=== PATIENT | female | born 1995 | race Caucasian/White ===

== ENCOUNTER 2019-06-20 00:57 | Emergency (ER) | payer MEDICAID ==
[~2019-06-20] VITALS: Ht 165.1 cm; Wt 65.0 kg
[2019-06-20] MEDS ORDERED: IV NORMAL SALINE 1,000ML 1,000 ML IV SCH (01:58)
[2019-06-20] MEDS ORDERED: ONDANSETRON PF 4 MG/2 ML VIAL. IVP ONE (02:00)
[2019-06-20] MEDS: HYDROmorphone PF 1 MG/ML DISP.SYRIN IV/SQ PRN ×2 (02:14→02:57)
[2019-06-20 02:51] LABS: BASO % 0 % (0-3); EOS % 1 % (0-3); HEMATOCRIT 40.1 % (36.0-47.0); HEMOGLOBIN 13.4 g/dL (12.0-15.5); LYMPH # 1.5 x10^3/uL (1.0-4.8); LYMPH % 19 % (24-48); MEAN CORPUSCULAR HEMOGLOBIN 33 pg (25-35); MEAN CORPUSCULAR HGB CONC 34 g/dL (31-37); MEAN CORPUSCULAR VOLUME 98 fL (79-100); MONO # 0.4 x10^3/uL (0.0-1.1); MONO % 5 % (0-9); NEUT # 5.7 x10^3uL (1.8-7.7); NEUT % 75 % (31-73); PLATELET COUNT 185 x10^3/uL (140-400); RED BLOOD COUNT 4.11 x10^6/uL (3.50-5.40); RED CELL DISTRIBUTION WIDTH 12.9 % (11.5-14.5); WHITE BLOOD COUNT 7.7 x10^3/uL (4.0-11.0)
[2019-06-20 02:56] LABS: CALCIUM 8.7 mg/dL (8.5-10.1); CREATININE 0.7 mg/dL (0.6-1.0); GFR 101.1
[2019-06-20 02:56] LABS: U PREG PATIENT NEGATIVE (NEG)
[2019-06-20 02:57] LABS: BACTERIA,URINE 0 /HPF (0-FEW); BILIRUBIN,URINE NEG (NEG); CLARITY,URINE CLEAR; COLOR,URINE YELLOW; GLUCOSE,URINE NEG (NEG); NITRITE,URINE NEG (NEG); RBC,URINE OCC /HPF (0-2); SQUAMOUS EPITHELIAL CELL,UR FEW /LPF; UROBILINOGEN,URINE 0.2 mg/dL (0.2 mg/dL)
[2019-06-20 03:04] LABS: ALBUMIN/GLOBULIN RATIO 1.4 (1.0-1.7); TOTAL BILIRUBIN 0.4 mg/dL (0.2-1.0); TOTAL PROTEIN 6.9 g/dL (6.4-8.2)
[2019-06-20] MEDS ORDERED: IOHEXOL 300 MG/ML 75 ML VIAL. IV ONE (03:30)
[2019-06-20] MEDS ORDERED: CONTRAST GIVEN MC PRN (03:30)
--- NOTE | 2019-06-20 03:59 | RAD ---
EXAM: CT Abdomen and Pelvis with IV contrast CLINICAL HISTORY: Abdominal pain. COMPARISON: none TECHNIQUE: Helical CT of the abdomen and pelvis was performed following the administration of intravenous contrast. Axial, coronal and sagittal reformatted images were generated. PQRS compliance statement - One or more of the following individualized dose reduction techniques were utilized for this study: 1. Automated exposure control 2. Adjustment of the mA and/or kV according to patient size 3. Use of iterative reconstruction technique FINDINGS: Lower chest: Lung bases are clear Abdomen and Pelvis: No focal liver lesion. Mild periportal edema is seen, larger clinical significance. Gallbladder is normal. No biliary duct dilatation. Pancreas is unremarkable. Heterogeneous enhancement of this fluid likely physiologic. Adrenal glands are normal. Mildly delayed left nephrogram. Mild left hydronephrosis and hydroureter. Suspect a 4 mm calculus within the distal left ureter. Of note, the ureter in the pelvis is not well delineated. Mild left perinephric infiltration. Moderate colonic stool content is seen. No bowel obstruction. No abdominal or pelvic lymphadenopathy. No abdominal or pelvic ascites. Appendix is not convincingly seen. No significant right lower quadrant inflammatory changes are seen. Small bowel feces sign terminal ileum. Bilateral coxa valga. No aggressive osseous lesion. IMPRESSION: 1. There is a delayed left nephrogram with left hydronephrosis and hydroureter, likely due to a 4 mm calculus within the distal left ureter. Of note, the ureter in the pelvis is not well delineated and these findings may be also related to left-sided pyelonephritis. 2. Moderate colonic stool content is seen. No definite bowel obstruction. 3. Mild periportal edema is nonspecific. This can be correlated with LFTs. Electronically signed by: Henrique Philippe MD (06/20/2019 3:56 AM) [facility]
[2019-06-20] MEDS ORDERED: KETOROLAC 30 MG/ML VIAL. IVP ONE (04:00)
[2019-06-20] MEDS ORDERED: KETOROLAC 30 MG/ML VIAL. ONE (04:09)
[2019-06-20] MEDS ORDERED: MORPHINE SULFATE 4 MG/ML DISP.SYRIN. IV ONE (04:15)
[2019-06-20] MEDS ORDERED: MORPHINE SULFATE 4 MG/ML DISP.SYRIN. ONE (04:17)
--- NOTE | 2019-06-20 04:27 | PHYS DOC ---
Past History Past Medical History: High Cholesterol Past Surgical History: No Surgical History Alcohol Use: None Adult General Chief Complaint Chief Complaint: ABDOMINAL PAIN HPI HPI Patient is a 24-year-old female who presents with complaint of left-sided flank/abdominal pain that woke her up at about 11:30 PM. Patient states that she has had nausea and vomiting since onset of the pain. She rates pain at a 10 out of 10. She denies any fever. Patient states that nothing improves the pain and she is not really aware of anything specific that worsens the pain. She states that it just hurts no matter what.[] Review of Systems Review of Systems Constitutional: Denies fever or chills [] Respiratory: Denies cough or shortness of breath [] Cardiovascular: No additional information not addressed in HPI [] GI: Complains of left flank/lower abdominal pain with nausea and vomiting. Denies diarrhea [] Integument: Denies rash or skin lesions [] Neurologic: Denies headache, focal weakness or sensory changes [] All other systems were reviewed and found to be within normal limits, except as documented in this note. Current Medications Current Medications Current Medications Medications (Trade) Dose Ordered Sig/Arsalan Start Time Stop Time Status Last Admin Dose Admin Hydromorphone HCl (Dilaudid) 0.5 mg PRN Q15MIN PRN 06/20/19 02:00 06/21/19 01:59 06/20/19 02:57 0.5 MG Info (Do NOT chart on this entry -- for MONITORING) 1 each PRN DAILY PRN 06/20/19 03:30 06/22/19 03:29 Iohexol (Omnipaque 300 Mg/ml) 75 ml 1X ONCE 06/20/19 03:30 06/20/19 03:31 DC 06/20/19 03:29 75 ML Ketorolac Tromethamine (Toradol 30mg Vial) 30 mg 1X ONCE 06/20/19 04:00 06/20/19 04:01 UNV Ondansetron HCl (Zofran) 4 mg 1X ONCE 06/20/19 02:00 06/20/19 02:17 DC 06/20/19 02:15 4 MG Sodium Chloride 1,000 ml @ 1,000 mls/hr Q1H 06/20/19 01:58 06/20/19 02:58 DC 06/20/19 02:14 1,000 MLS/HR Allergies Allergies Allergies Coded Allergies Type Severity Reaction Last Updated Verified Sulfa (Sulfonamide Antibiotics) Allergy Severe 06/20/19 Yes Physical Exam Physical Exam Constitutional: Well developed, well nourished, no acute distress, non-toxic appearance. [] HENT: Normocephalic, atraumatic, bilateral external ears normal, oropharynx moist, no oral exudates, nose normal. [] Eyes: PERRLA, EOMI, conjunctiva normal, no discharge. [] Neck: Normal range of motion, no tenderness, supple, no stridor. [] Cardiovascular:Heart rate regular rhythm, no murmur [] Lungs & Thorax: Bilateral breath sounds clear to auscultation [] Abdomen: Bowel sounds normal, soft, no tenderness, no masses, no pulsatile masses. [] Skin: Warm, dry, no erythema, no rash. [] Back: No tenderness, no CVA tenderness. [] Extremities: No tenderness, no cyanosis, no clubbing, ROM intact, no edema. [] Neurologic: Alert and oriented X 3, normal motor function, normal sensory function, no focal deficits noted. [] Psychologic: Affect normal, judgement normal, mood normal. [] Current Patient Data Vital Signs Vital Signs Date Time Temp Pulse Resp B/P (MAP) Pulse Ox O2 Delivery O2 Flow Rate FiO2 06/20/19 02:57 18 99 Room Air 06/20/19 01:42 98.0 70 147/86 (106) Lab Results Laboratory Tests Test 06/20/19 01:28 06/20/19 01:38 Urine Collection Type Unknown Urine Color Yellow Urine Clarity Clear Urine pH 5.5 Urine Specific [place] >=1.030 Urine Protein Neg (NEG-TRACE) Urine Glucose (UA) Neg mg/dL (NEG) Urine Ketones (Stick) Neg mg/dL (NEG) Urine Blood Small (NEG) Urine Nitrite Neg (NEG) Urine Bilirubin Neg (NEG) Urine Urobilinogen Dipstick 0.2 mg/dL (0.2 mg/dL) Urine Leukocyte Esterase Neg (NEG) Urine RBC Occ /HPF (0-2) Urine WBC 1-4 /HPF (0-4) Urine Squamous Epithelial Cells Few /LPF Urine Bacteria 0 /HPF (0-FEW) Urine Test Negative (NEG) White Blood Count 7.7 x10^3/uL (4.0-11.0) Red Blood Count 4.11 x10^6/uL (3.50-5.40) Hemoglobin 13.4 g/dL (12.0-15.5) Hematocrit 40.1 % (36.0-47.0) Mean Corpuscular Volume 98 fL (79-100) Mean Corpuscular Hemoglobin 33 pg (25-35) Mean Corpuscular Hemoglobin Concent 34 g/dL (31-37) Red Cell Distribution Width 12.9 % (11.5-14.5) Platelet Count 185 x10^3/uL (140-400) Neutrophils (%) (Auto) 75 % (31-73) H Lymphocytes (%) (Auto) 19 % (24-48) L Monocytes (%) (Auto) 5 % (0-9) Eosinophils (%) (Auto) 1 % (0-3) Basophils (%) (Auto) 0 % (0-3) Neutrophils # (Auto) 5.7 x10^3uL (1.8-7.7) Lymphocytes # (Auto) 1.5 x10^3/uL (1.0-4.8) Monocytes # (Auto) 0.4 x10^3/uL (0.0-1.1) Eosinophils # (Auto) 0.0 x10^3/uL (0.0-0.7) Basophils # (Auto) 0.0 x10^3/uL (0.0-0.2) Sodium Level 143 mmol/L (136-145) Potassium Level 4.0 mmol/L (3.5-5.1) Chloride Level 104 mmol/L (98-107) Carbon Dioxide Level 29 mmol/L (21-32) Anion Gap 10 (6-14) Blood Urea Nitrogen 12 mg/dL (7-20) Creatinine 0.7 mg/dL (0.6-1.0) Estimated GFR (Cockcroft-Gault) 101.1 BUN/Creatinine Ratio 17 (6-20) Glucose Level 112 mg/dL (70-99) H Calcium Level 8.7 mg/dL (8.5-10.1) Total Bilirubin 0.4 mg/dL (0.2-1.0) Aspartate Amino Transferase (AST) 14 U/L (15-37) L Alanine Aminotransferase (ALT) 19 U/L (14-59) Alkaline Phosphatase 39 U/L (46-116) L Total Protein 6.9 g/dL (6.4-8.2) Albumin 4.0 g/dL (3.4-5.0) Albumin/Globulin Ratio 1.4 (1.0-1.7) Lipase 103 U/L (73-393) EKG EKG [] Radiology/Procedures Radiology/Procedures [] Impressions: PROCEDURE: CT ABD PELV W/ IV CONTRST ONLY EXAM: CT Abdomen and Pelvis with IV contrast CLINICAL HISTORY: Abdominal pain. COMPARISON: none TECHNIQUE: Helical CT of the abdomen and pelvis was performed following the administration of intravenous contrast. Axial, coronal and sagittal reformatted images were generated. PQRS compliance statement - One or more of the following individualized dose reduction techniques were utilized for this study: 1. Automated exposure control 2. Adjustment of the mA and/or kV according to patient size 3. Use of iterative reconstruction technique FINDINGS: Lower chest: Lung bases are clear Abdomen and Pelvis: No focal liver lesion. Mild periportal edema is seen, larger clinical significance. Gallbladder is normal. No biliary duct dilatation. Pancreas is unremarkable. Heterogeneous enhancement of this fluid likely physiologic. Adrenal glands are normal. Mildly delayed left nephrogram. Mild left hydronephrosis and hydroureter. Suspect a 4 mm calculus within the distal left ureter. Of note, the ureter in the pelvis is not well delineated. Mild left perinephric infiltration. Moderate colonic stool content is seen. No bowel obstruction. No abdominal or pelvic lymphadenopathy. No abdominal or pelvic ascites. Appendix is not convincingly seen. No significant right lower quadrant inflammatory changes are seen. Small bowel feces sign terminal ileum. Bilateral coxa valga. No aggressive osseous lesion. IMPRESSION: 1. There is a delayed left nephrogram with left hydronephrosis and hydroureter, likely due to a 4 mm calculus within the distal left ureter. Of note, the ureter in the pelvis is not well delineated and these findings may be also related to left-sided pyelonephritis. 2. Moderate colonic stool content is seen. No definite bowel obstruction. 3. Mild periportal edema is nonspecific. This can be correlated with LFTs. Electronically signed by: Henrique Philippe MD (06/20/2019 3:56 AM) [id number] DICTATED AND SIGNED BY: HENRIQUE PHILIPPE MD DATE: 06/20/19 0356 CC: MARTIN HERNANDEZ Jr. DO; TAY RAMIREZ ~ Course & Med Decision Making Course & Med Decision Making Pertinent Labs and Imaging studies reviewed. (See chart for details) [] Dragon Disclaimer Dragon Disclaimer This electronic medical record was generated, in whole or in part, using a voice recognition dictation system. Departure Departure: Impression: Primary Impression: Ureterolithiasis Disposition: HOME, SELF-CARE Condition: STABLE Referrals: TAY RAMIREZ (PCP) Patient Instructions: Diet for Kidney Stones, Kidney Stones Scripts Ketorolac Tromethamine (KETOROLAC TROMETHAMINE) 10 Mg Tablet 1 TAB PO PRN Q6HRS for pain, #20 TAB Prov: MARTIN HERNANDEZ Jr. DO 06/20/19 Ondansetron (ONDANSETRON ODT) 4 Mg Tab.rapdis 1 TAB PO PRN Q6-8HRS PRN for NAUSEA, #12 TAB Prov: MARTIN HERNANDEZ Jr. DO 06/20/19 Oxycodone Hcl/Acetaminophen (PERCOCET 10-325 MG TABLET ) 1 Each Tablet 1 TAB PO PRN QID PRN for PAIN MDD 4 Tablet(s), #15 TAB 0 Refills Prov: MARTIN HERNANDZE Jr. DO 06/20/19 MARTIN HERNANDEZ Jr. DO Jun 20, 2019 04:26
[2019-06-20 04:42] VITALS: BP 116/73
[2019-06-20] MEDS ORDERED: ONDA4TAB12 PO (05:21)
[2019-06-20] MEDS ORDERED: KETO10TA PO (05:21)
[2019-06-20] MEDS ORDERED: OXYC1TAB22 PO (05:21)
== END 2019-06-20 05:32 | disposition home or self-care (01) ==
LOC: ER 00:57
DX: N13.2 Hydronephrosis with renal and ureteral calculous obstruction (principal); R10.32 Left lower quadrant pain; R11.2 Nausea with vomiting, unspecified; E78.00 Pure hypercholesterolemia, unspecified; Z88.2 Allergy status to sulfonamides
CPT/HCPCS: 36415; 74177; 80053; 81001; 81025; 83690; 85025; 96361; 96374; 96375; 99285; J1170; J1885; J2270; J2405; Q9967; J7030

== ENCOUNTER 2020-02-17 12:31 | Emergency (ER) | payer MEDICAID, OTHER ==
[~2020-02-17] VITALS: Ht 165.1 cm; Wt 65.0 kg
[~2020-02-17 12:31] MED LIST: KETO10TA PO; ONDA4TAB12 PO; OXYC1TAB22 PO
--- NOTE | 2020-02-17 12:41 | PHYS DOC ---
Past History Past Medical History: High Cholesterol Past Surgical History: No Surgical History Alcohol Use: None General Adult EDM: Chief Complaint: VOMITING IN HPI: HPI: Patient is a G1, P0 female whose last menstrual period was 7 weeks ago presents with a chief complaint of nausea and vomiting for last 2 weeks. Patient states that is gotten worse over last 2 days and is worse with eating. Patient denies any abdominal pain or vaginal bleeding. Patient says she had a temperature of 995 today but is gone this morning. Patient states she has had some constipation as well. Review of Systems: Review of Systems: Constitutional: Patient had temp of 995 yesterday Eyes: Denies change in visual acuity HENT: Denies nasal congestion or sore throat Respiratory: Denies cough or shortness of breath Cardiovascular: Denies chest pain or edema GI: Complains of nausea and vomiting and constipation but no abdominal pain : Denies dysuria denies vaginal bleeding Musculoskeletal: Denies back pain or joint pain Integument: Denies rash Neurologic: Denies headache, focal weakness or sensory changes Endocrine: Denies polyuria or polydipsia Lymphatic: Denies swollen glands Psychiatric: Denies depression or anxiety Heart Score: Risk Factors: Risk Factors: DM, Current or recent (<one month) smoker, HTN, HLP, family history of CAD, obesity. Risk Scores: Score 0 - 3: 2.5% MACE over next 6 weeks - Discharge Home Score 4 - 6: 20.3% MACE over next 6 weeks - Admit for Clinical Observation Score 7 - 10: 72.7% MACE over next 6 weeks - Early Invasive Strategies Current Medications: Current Meds: Current Medications Medications (Trade) Dose Ordered Sig/Arsalan Start Time Stop Time Status Last Admin Dose Admin Dextrose/Lactated Ringer's 1,000 ml @ 1,000 mls/hr 1X ONCE 02/17/20 12:45 02/17/20 13:44 Ondansetron HCl (Zofran) 4 mg 1X ONCE 02/17/20 12:45 02/17/20 12:46 Allergies: Allergies: Allergies Coded Allergies Type Severity Reaction Last Updated Verified Sulfa (Sulfonamide Antibiotics) Allergy Severe 06/20/19 Yes Physical Exam: PE: Constitutional: Well developed, well nourished, no acute distress, non-toxic appearance. [] HENT: Normocephalic, atraumatic, bilateral external ears normal, no trismus nose normal. [] Eyes: PERRLA, EOMI, conjunctiva normal, no discharge. [] Neck: Normal range of motion, no tenderness, supple, no stridor. [] Cardiovascular:Heart rate regular rhythm, peripheral pulses intact, cap refill is brisk Lungs & Thorax: Bilateral breath sounds clear, no respiratory distress Abdomen:, soft, no tenderness, no masses, no pulsatile masses. [] Skin: Warm, dry, no erythema, no rash. [] Back: No tenderness, no CVA tenderness. [] Extremities: No tenderness, no cyanosis, no clubbing, ROM intact, no edema. [] Neurologic: Alert and oriented X 3, normal motor function, normal sensory function, no focal deficits noted. [] Psychologic: Affect normal, judgement normal, mood normal. [] Current Patient Data: Labs: Laboratory Tests Test 02/17/20 12:50 White Blood Count 8.0 x10^3/uL Red Blood Count 4.45 x10^6/uL Hemoglobin 14.3 g/dL Hematocrit 42.5 % Mean Corpuscular Volume 96 fL Mean Corpuscular Hemoglobin 32 pg Mean Corpuscular Hemoglobin Concent 34 g/dL Red Cell Distribution Width 11.8 % Platelet Count 246 x10^3/uL Neutrophils (%) (Auto) 78 % Lymphocytes (%) (Auto) 15 % Monocytes (%) (Auto) 7 % Eosinophils (%) (Auto) 0 % Basophils (%) (Auto) 0 % Neutrophils # (Auto) 6.2 x10^3uL Lymphocytes # (Auto) 1.2 x10^3/uL Monocytes # (Auto) 0.6 x10^3/uL Eosinophils # (Auto) 0.0 x10^3/uL Basophils # (Auto) 0.0 x10^3/uL Urine Collection Type Unknown Urine Color Yellow Urine Clarity Hazy Urine pH 7.0 Urine Specific [place] 1.020 Urine Protein Neg Urine Glucose (UA) Neg mg/dL Urine Ketones (Stick) 40 mg/dL Urine Blood Neg Urine Nitrite Neg Urine Bilirubin Neg Urine Urobilinogen Dipstick 0.2 mg/dL Urine Leukocyte Esterase Neg Urine RBC 1-2 /HPF Urine WBC 1-4 /HPF Urine Squamous Epithelial Cells Few /LPF Urine Amorphous Sediment Present /HPF Urine Bacteria Few /HPF Urine Mucus Slight /LPF Maternal Serum HCG Beta Subunit 780960 mIU/mL Sodium Level 139 mmol/L Potassium Level 4.0 mmol/L Chloride Level 101 mmol/L Carbon Dioxide Level 26 mmol/L Anion Gap 12 Blood Urea Nitrogen 9 mg/dL Creatinine 0.7 mg/dL Estimated GFR (Cockcroft-Gault) 101.1 BUN/Creatinine Ratio 13 Glucose Level 91 mg/dL Calcium Level 9.7 mg/dL Total Bilirubin 0.6 mg/dL Aspartate Amino Transf (AST/SGOT) 13 U/L Alanine Aminotransferase (ALT/SGPT) 18 U/L Alkaline Phosphatase 46 U/L Total Protein 8.0 g/dL Albumin 4.4 g/dL Albumin/Globulin Ratio 1.2 Lipase 78 U/L Current Medications Medications (Trade) Dose Ordered Sig/Arsalan Route PRN Reason Start Time Stop Time Status Last Admin Dose Admin Dextrose/Lactated Ringer's 1,000 ml @ 1,000 mls/hr 1X ONCE IV 02/17/20 12:45 02/17/20 13:44 DC 02/17/20 12:47 Ondansetron HCl (Zofran) 4 mg 1X ONCE IVP 02/17/20 12:45 02/17/20 12:46 DC 02/17/20 12:47 Vital Signs: Vital Signs Date Time Temp Pulse Resp B/P (MAP) Pulse Ox O2 Delivery O2 Flow Rate FiO2 02/17/20 12:52 98.9 77 18 128/53 (78) 100 EKG: EKG: [] Radiology/Procedures: Radiology/Procedures: [][address] [address] IMAGING REPORT Signed PATIENT: GRISELDA CHAU SACCOUNT: [id number] : 1995 LOCATION: ER AGE: 24 SEX: F EXAM STATUS: REG ER ORD. PHYSICIAN: MARTIN CORDOVA MD REASON: 7 weeks preg. pain PROCEDURE: OB <14 WKS EXAMINATION: OB <14 WKS, 02/17/2020 12:34 PM CLINICAL INDICATION: 7 weeks , pain TECHNIQUE: Pelvic ultrasound per OB less than 14 weeks protocol via transvaginal approach. COMPARISON: None FINDINGS: The uterus measures 8 x 6 x 6 cm. There is a single living intrauterine gestation. heart rate is 152 bpm. [place]-rump length is 1.8 cm, consistent with gestational age by ultrasound of 8 weeks 2 days. A gestational sac is normal in appearance. Possible yolk sac visualized. No evidence of subchorionic hemorrhage. The right ovary measures 3.5 x 1.6 x 1.3 cm. The left ovary measures 2.8 x 1.7 x 2.0 cm. Normal ovarian flow bilaterally. No adnexal mass or free fluid. IMPRESSION: Single living intrauterine with gestational age by ultrasound 8 weeks 2 days. Electronically signed by: Janelle Olguin MD (02/17/2020 1:55 PM) [id number] DICTATED AND SIGNED BY: JANELLE OLGUIN MD DATE: 02/17/20 [id number] CC: MARTIN CORDOVA MD; TAY RAMIREZ ~ Course & Med Decision Making: Course & Med Decision Making Pertinent Labs and Imaging studies reviewed. (See chart for details) [] 24-year-old female who is 8 weeks presents with nausea vomiting. Ultrasound is reassuring. Patient feels much better after fluids and Zofran. Patient does have a mild UTI which will be treated. Abdominal exam is benign. Dragon Disclaimer: Dragon Disclaimer: This electronic medical record was generated, in whole or in part, using a voice recognition dictation system. Departure Departure: Impression: Primary Impression: Vomiting Additional Impression: UTI (urinary tract infection) Disposition: 01 HOME/RESIDENCE PRIOR TO ADM Condition: STABLE Referrals: TAY RAMIREZ (PCP) 2-3 days Patient Instructions: Hyperemesis Gravidarum, Nausea and Vomiting Additional Instructions: EMERGENCY DEPARTMENT GENERAL DISCHARGE INSTRUCTIONS THANK YOU for coming to [facility] Emergency Department (ED) today and trusting us with your care. We trust that you had a positive experience in our Emergency Department. If you wish to speak to the department Management you can contact the emergency department at YOUR FOLLOW UP INSTRUCTIONS ARE FOLLOWS: Do you have a private doctor? If you do not have a private doctor, please ask for a resource list of physicians or clinics that may be able to assist you with follow up care. The Emergency Physician has interpreted your x-rays. The X-ray specialist will also review them. If there is a change in the findings you will be notified in 48 hours when at all possible. A lab test or lab culture may have been done, your results will be reviewed and you will be notified if you need a change in treatment. ADDITIONAL INSTRUCTIONS AND INFORMATION Your care today has been supervised by a physician who is specially trained in emergency care. Many problems require more than one evaluation for a complete diagnosis and treatment. We recommend that you schedule your follow up appointment as recommended to ensure complete treatment of your illness or injury. If you are unable to obtain follow up care and continue to have a problem, or if your condition worsens we recommend that you return to the ED. We are not able to safely determine your condition over the phone nor are we able to give sound medical advice over the phone. For these safety reasons, if you call for medical advice we will ask you to come to the ED for further evaluation If you have any questions regarding these discharge instructions please call the ED at . SAFETY INFORMATION In the interest of safety, wellness, and injury prevention; we encourage you to wear your seatbelt, if you smoke; quit smoking, and we encourage your family to use protective helmet for bicycling and other sporting events that present an increased risk for head injury. IF YOUR SYMPTOMS WORSEN OR NEW SYMPTOMS DEVELOP, OR YOU HAVE CONCERNS ABOUT YOUR CONDITION; OR IF YOUR CONDITION WORSENS WHILE YOU ARE WAITING FOR YOUR FOLLOW UP APPOINTMENT; EITHER CONTACT YOUR PRIMARY CARE DOCTOR, THE PHYSICIAN WHOSE NAME AND NUMBER YOU WERE GIVEN, OR RETURN TO THE ED IMMEDIATELY. Scripts Nitrofurantoin Monohyd/M-Cryst (MACROBID 100 MG CAPSULE) 100 Mg Capsule 1 CAP PO BID for uti for 5 Days, #10 CAP 0 Refills Prov: MARTIN CORDOVA MD 02/17/20 Ondansetron Hcl (ZOFRAN) 4 Mg Tablet 1 TAB PO Q6HRS for nausea, #15 TAB Prov: MARTIN CORDOVA MD 02/17/20 Justification of Admission: Justification of Admission: Justification of Admission Dx: N/A MARTIN CORDOVA MD Feb 17, 2020 12:41
[2020-02-17] MEDS ORDERED: IV DEXTROSE 5%-LACT RINGERS 1,000 ML IV ONE (12:45)
[2020-02-17] MEDS ORDERED: ONDANSETRON PF 4 MG/2 ML VIAL. IVP ONE (12:45)
[2020-02-17 12:52] VITALS: BP 128/53
[2020-02-17 13:12] LABS: BASO % 0 % (0-3); EOS % 0 % (0-3); HEMATOCRIT 42.5 % (36.0-47.0); HEMOGLOBIN 14.3 g/dL (12.0-15.5); LYMPH # 1.2 x10^3/uL (1.0-4.8); LYMPH % 15 % (24-48); MEAN CORPUSCULAR HEMOGLOBIN 32 pg (25-35); MEAN CORPUSCULAR HGB CONC 34 g/dL (31-37); MEAN CORPUSCULAR VOLUME 96 fL (79-100); MONO # 0.6 x10^3/uL (0.0-1.1); MONO % 7 % (0-9); NEUT # 6.2 x10^3uL (1.8-7.7); NEUT % 78 % (31-73); PLATELET COUNT 246 x10^3/uL (140-400); RED BLOOD COUNT 4.45 x10^6/uL (3.50-5.40); RED CELL DISTRIBUTION WIDTH 11.8 % (11.5-14.5)
[2020-02-17 13:16] LABS: CALCIUM 9.7 mg/dL (8.5-10.1); CREATININE 0.7 mg/dL (0.6-1.0); GFR 101.1
[2020-02-17 13:21] LABS: ALBUMIN 4.4 g/dL (3.4-5.0); ALBUMIN/GLOBULIN RATIO 1.2 (1.0-1.7); TOTAL BILIRUBIN 0.6 mg/dL (0.2-1.0)
[2020-02-17 13:37] LABS: BILIRUBIN,URINE NEG (NEG); CLARITY,URINE HAZY; COLOR,URINE YELLOW; GLUCOSE,URINE NEG (NEG); NITRITE,URINE NEG (NEG); UROBILINOGEN,URINE 0.2 mg/dL (0.2 mg/dL)
[2020-02-17 13:38] LABS: AMORPHOUS SEDIMENT,UR PRESENT /HPF; BACTERIA,URINE FEW /HPF (0-FEW); SQUAMOUS EPITHELIAL CELL,UR FEW /LPF
--- NOTE | 2020-02-17 13:58 | RAD ---
EXAMINATION: OB <14 WKS, 02/17/2020 12:34 PM CLINICAL INDICATION: 7 weeks , pain TECHNIQUE: Pelvic ultrasound per OB less than 14 weeks protocol via transvaginal approach. COMPARISON: None FINDINGS: The uterus measures 8 x 6 x 6 cm. There is a single living intrauterine gestation. heart rate is 152 bpm. [place]-rump length is 1.8 cm, consistent with gestational age by ultrasound of 8 weeks 2 days. A gestational sac is normal in appearance. Possible yolk sac visualized. No evidence of subchorionic hemorrhage. The right ovary measures 3.5 x 1.6 x 1.3 cm. The left ovary measures 2.8 x 1.7 x 2.0 cm. Normal ovarian flow bilaterally. No adnexal mass or free fluid. IMPRESSION: Single living intrauterine with gestational age by ultrasound 8 weeks 2 days. Electronically signed by: Janelle Olguin MD (02/17/2020 1:55 PM) [id number]
[2020-02-17] MEDS ORDERED: ONDA4TAB7 PO (15:35)
[2020-02-17] MEDS ORDERED: NITR100C62 PO (15:35)
== END 2020-02-17 15:55 | disposition home or self-care (01) ==
LOC: ER 12:31
DX: O23.41 Unspecified infection of urinary tract in pregnancy, first trimester (principal); O21.9 Vomiting of pregnancy, unspecified; K59.00 Constipation, unspecified; E78.00 Pure hypercholesterolemia, unspecified; Z3A.08 8 weeks gestation of pregnancy; Z88.2 Allergy status to sulfonamides
CPT/HCPCS: 36415; 76801; 80053; 81001; 83690; 84702; 85025; 96361; 96374; 99284; J2405

== ENCOUNTER 2020-02-20 17:46 | Emergency (ER) | payer OTHER ==
[~2020-02-20] VITALS: Ht 165.1 cm; Wt 55.0 kg
[~2020-02-20 17:46] MED LIST changes: +NITR100C62 PO; +ONDA4TAB7 PO
[2020-02-20] MEDS ORDERED: ONDANSETRON PF 4 MG/2 ML VIAL. IVP ONE (18:30)
[2020-02-20] MEDS ORDERED: IV NORMAL SALINE 1,000ML 1,000 ML IV ONE (18:30)
[2020-02-20] MEDS ORDERED: diphenhydrAMINE 50 MG/ML VIAL IVP ONE (18:45)
[2020-02-20] MEDS ORDERED: METOCLOPRAMIDE HCL 10 MG/2 ML VIAL. IVP ONE (18:45)
--- NOTE | 2020-02-20 18:52 | PHYS DOC ---
Past History Past Medical History: No Pertinent History, High Cholesterol Past Surgical History: No Surgical History Alcohol Use: None General Adult EDM: Chief Complaint: VOMITING IN HPI: HPI: 24-year-old G1, P0 female that is 9 weeks presents with vomiting. The patient was seen in this emergency room a few days ago with vomiting. She was able to eat the day that she left, but has been unable to keep down liquids or solids with any consistency since that time. She has been taking both tablets Zofran as well as ODT Zofran without control of her vomiting. She has also tried Bonjesta. She was diagnosed with a UTI and placed on an antibiotic but she is not sure that she is getting much of the antibiotics since she throws up. She just wants to control her vomiting. She has no other complaints at this time. She denies fever or chills. Review of Systems: Review of Systems: Constitutional: Denies fever or chills Eyes: Denies change in visual acuity HENT: Denies nasal congestion or sore throat Respiratory: Denies cough or shortness of breath Cardiovascular: Denies chest pain or edema GI: nausea, vomiting. : Denies dysuria Musculoskeletal: Denies back pain or joint pain Integument: Denies rash Neurologic: Denies headache, focal weakness or sensory changes Endocrine: Denies polyuria or polydipsia Lymphatic: Denies swollen glands Psychiatric: Denies depression or anxiety Heart Score: Risk Factors: Risk Factors: DM, Current or recent (<one month) smoker, HTN, HLP, family history of CAD, obesity. Risk Scores: Score 0 - 3: 2.5% MACE over next 6 weeks - Discharge Home Score 4 - 6: 20.3% MACE over next 6 weeks - Admit for Clinical Observation Score 7 - 10: 72.7% MACE over next 6 weeks - Early Invasive Strategies Current Medications: Current Meds: Current Medications Medications (Trade) Dose Ordered Sig/Arsalan Start Time Stop Time Status Last Admin Dose Admin Diphenhydramine HCl (Benadryl) 25 mg 1X ONCE 02/20/20 18:45 02/20/20 18:47 DC Metoclopramide HCl (Reglan Vial) 10 mg 1X ONCE 02/20/20 18:45 02/20/20 18:47 DC Ondansetron HCl (Zofran) 4 mg 1X ONCE 02/20/20 18:30 02/20/20 18:34 DC Sodium Chloride 1,000 ml @ 1,000 mls/hr 1X ONCE 02/20/20 18:30 02/20/20 19:29 Allergies: Allergies: Allergies Coded Allergies Type Severity Reaction Last Updated Verified Sulfa (Sulfonamide Antibiotics) Allergy Severe 06/20/19 Yes Physical Exam: PE: Constitutional: Well developed, well nourished, no acute distress, non-toxic appearance. [] HENT: Normocephalic, atraumatic, bilateral external ears normal, oropharynx moist, no oral exudates, nose normal. [] Eyes: PERRLA, EOMI, conjunctiva normal, no discharge. [] Neck: Normal range of motion, no tenderness, supple, no stridor. [] Cardiovascular:Heart rate regular rhythm, no murmur [] Lungs & Thorax: Bilateral breath sounds clear to auscultation [] Abdomen: Bowel sounds normal, soft, no tenderness, no masses, no pulsatile masses. [] Skin: Warm, dry, no erythema, no rash. [] Back: No tenderness, no CVA tenderness. [] Extremities: No tenderness, no cyanosis, no clubbing, ROM intact, no edema. [] Neurologic: Alert and oriented X 3, normal motor function, normal sensory function, no focal deficits noted. [] Psychologic: Affect normal, judgement normal, mood normal. [] EKG: EKG: [] Radiology/Procedures: Radiology/Procedures: [] Course & Med Decision Making: Course & Med Decision Making Pertinent Labs and Imaging studies reviewed. (See chart for details) We will try for milligrams Zofran IV, 25 mg of Benadryl, and 10 mg of Reglan IV. We will also give her a liter of normal saline. The patient is feeling better at this time. She was able to eat some crackers in the emergency room without vomiting. I will discharge her with a prescription for Reglan and advised that she take it with Benadryl and take 4 of Zofran ODT before these medicines. She will inform her OB of this plan and make sure this is acceptable. She is stable for discharge at this time. [] Dragon Disclaimer: Dragshanel Disclaimer: This electronic medical record was generated, in whole or in part, using a voice recognition dictation system. Departure Departure: Impression: Primary Impression: Hyperemesis gravidarum Disposition: HOME/RESIDENCE PRIOR TO ADM Condition: STABLE Referrals: FROYLAN PANG APRN (PCP) Patient Instructions: Diet - Hyperemesis Gravidarum, Hyperemesis Gravidarum Scripts Metoclopramide Hcl (REGLAN) 10 Mg Tablet 1 TAB PO QID PRN for VOMITING for 30 Days, #30 TAB 0 Refills Prov: AP ARREGUIN DO 02/20/20 AP ARREGUIN DO Feb 20, 2020 18:52
[2020-02-20 19:54] LABS: BASO % 0 % (0-3); EOS % 0 % (0-3); HEMATOCRIT 42.5 % (36.0-47.0); HEMOGLOBIN 14.2 g/dL (12.0-15.5); LYMPH # 1.3 x10^3/uL (1.0-4.8); LYMPH % 14 % (24-48); MEAN CORPUSCULAR HEMOGLOBIN 32 pg (25-35); MEAN CORPUSCULAR HGB CONC 34 g/dL (31-37); MEAN CORPUSCULAR VOLUME 95 fL (79-100); MONO # 0.6 x10^3/uL (0.0-1.1); MONO % 6 % (0-9); NEUT # 7.2 x10^3uL (1.8-7.7); NEUT % 79 % (31-73); PLATELET COUNT 252 x10^3/uL (140-400); RED BLOOD COUNT 4.46 x10^6/uL (3.50-5.40); RED CELL DISTRIBUTION WIDTH 11.8 % (11.5-14.5); WHITE BLOOD COUNT 9.1 x10^3/uL (4.0-11.0)
[2020-02-20 19:57] LABS: CALCIUM 9.7 mg/dL (8.5-10.1); CREATININE 0.8 mg/dL (0.6-1.0); GFR 86.7; POTASSIUM 4.1 mmol/L (3.5-5.1)
[2020-02-20 20:00] LABS: BILIRUBIN,URINE NEG (NEG); CLARITY,URINE CLEAR; COLOR,URINE YELLOW; GLUCOSE,URINE NEG (NEG)
[2020-02-20 20:01] LABS: BACTERIA,URINE 0 /HPF (0-FEW); NITRITE,URINE NEG (NEG); RBC,URINE 0 /HPF (0-2); SQUAMOUS EPITHELIAL CELL,UR FEW /LPF; UROBILINOGEN,URINE 0.2 mg/dL (0.2 mg/dL); WBC,URINE RARE /HPF (0-4)
[2020-02-20 20:03] LABS: ALBUMIN 4.7 g/dL (3.4-5.0); ALBUMIN/GLOBULIN RATIO 1.3 (1.0-1.7); TOTAL BILIRUBIN 0.7 mg/dL (0.2-1.0); TOTAL PROTEIN 8.4 g/dL (6.4-8.2)
[2020-02-20] MEDS ORDERED: METO10TA81 PO (20:44)
[2020-02-20 20:50] VITALS: BP 122/73
== END 2020-02-20 20:55 | disposition home or self-care (01) ==
LOC: ER 17:46
DX: O21.0 Mild hyperemesis gravidarum (principal); E78.00 Pure hypercholesterolemia, unspecified; Z3A.09 9 weeks gestation of pregnancy; Z88.2 Allergy status to sulfonamides
CPT/HCPCS: 36415; 80053; 81001; 85025; 96361; 96374; 96375; 99284; J1200; J2405; J2765; J7030

== ENCOUNTER 2020-11-06 12:43 | Emergency (ER) | payer OTHER ==
[~2020-11-06] VITALS: Ht 165.1 cm; Wt 54.0 kg
[~2020-11-06 12:43] MED LIST changes: +METO10TA81 PO
[2020-11-06 12:53] VITALS: BP 119/78
--- NOTE | 2020-11-06 13:01 | PHYS DOC ---
Past History Past Medical History: High Cholesterol Past Surgical History: No Surgical History Alcohol Use: None General Adult EDM: Chief Complaint: FLANK PAIN HPI: HPI: 25-year-old female presents with right flank pain. The patient started to have sharp right flank pain yesterday. The pain resolved after some time. Today, the patient has pain again in this area but it is not going away. She rates it as a moderate level, sharp pain. She denies urinary frequency or dysuria. She has had kidney stone in the past. She believes this pain is similar. The patient had a delivery 6 weeks ago. 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 The patient is breast-feeding and would like to avoid narcotics if possible. She denies fever or chills. Review of Systems: Review of Systems: Constitutional: Denies fever or chills Eyes: Denies change in visual acuity HENT: Denies nasal congestion or sore throat Respiratory: Denies cough or shortness of breath Cardiovascular: Denies chest pain or edema GI: Denies abdominal pain, nausea, vomiting, bloody stools or diarrhea : Denies dysuria Musculoskeletal: Right flank pain Integument: Denies rash Neurologic: Denies headache, focal weakness or sensory changes Endocrine: Denies polyuria or polydipsia Lymphatic: Denies swollen glands Psychiatric: Denies depression or anxiety Allergies: Allergies: Allergies Coded Allergies Type Severity Reaction Last Updated Verified Sulfa (Sulfonamide Antibiotics) Allergy Severe 11/06/20 Yes Physical Exam: PE: Constitutional: Well developed, well nourished, no acute distress, non-toxic appearance. [] HENT: Normocephalic, atraumatic, bilateral external ears normal, oropharynx moist, no oral exudates, nose normal. [] Eyes: PERRLA, EOMI, conjunctiva normal, no discharge. [] Neck: Normal range of motion, no tenderness, supple, no stridor. [] Cardiovascular: Heart rate regular rhythm, no murmur [] Lungs & Thorax: Bilateral breath sounds clear to auscultation [] Abdomen: Bowel sounds normal, soft, no tenderness, no masses, no pulsatile masses. [] Skin: Warm, dry, no erythema, no rash. [] Back: No tenderness, no CVA tenderness. [] Extremities: No tenderness, no cyanosis, no clubbing, ROM intact, no edema. [] Neurologic: Alert and oriented X 3, normal motor function, normal sensory function, no focal deficits noted. [] Psychologic: Affect normal, judgement normal, mood normal. [] EKG: EKG: [] Radiology/Procedures: Radiology/Procedures: [] Impressions: INDICATION: Reason: RIGHT FLANK PAIN, HX STONES, CSECTION X 6 WEEKS AGO / Spl. Instructions: / History: . COMPARISON: June 20, 2019 TECHNIQUE: Axial CT images obtained through the abdomen and pelvis without contrast. One or more of the following individualized dose reduction techniques were utilized for this examination: 1. Automated exposure control; 2. Adjustment of the mA and/or kV according to patient size; 3. Use of iterative reconstruction technique. FINDINGS: Mild calcific atherosclerosis. No intrahepatic bile duct dilation. Liver prominent in size. Limited assessment of the pancreas without contrast. Spleen similar to prior. Nonobstructive left renal stone. Right-sided hydronephrosis and hydroureter. Multiple calcifications within the pelvis with the majority of these likely secondary to phlebolith formation but there is one near the expected location of the right distal ureter measuring 3 to 4 mm. Urinary bladder has minimal urine within it at time of exam. There is some haziness to the fat within the pelvis. No dilated loops of bowel to suggest obstruction. Appendix is not well seen. Mild degenerative changes the spine including disc protrusion at L4-5 with grade 1 anterolisthesis. 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 IMPRESSION: * Right-sided hydronephrosis and hydroureter. There is also calcification near the expected location of the distal ureter which could be from distal ureter stone. * There are some nonspecific haziness to the fat within the pelvis. Could be related to the patient's recent section. Electronically signed by: Kenneth Alvarado MD (11/06/2020 2:33 PM) [id number] DICTATED AND SIGNED BY: KENNETH ALVARADO MD DATE: 11/06/20 142 CC: AP ARREGUIN DO; TAY RAMIREZ ~MTH0 0 Heart Score: C/O Chest Pain: N/A Risk Factors: Risk Factors: DM, Current or recent (<one month) smoker, HTN, HLP, family history of CAD, obesity. Risk Scores: Score 0 - 3: 2.5% MACE over next 6 weeks - Discharge Home Score 4 - 6: 20.3% MACE over next 6 weeks - Admit for Clinical Observation Score 7 - 10: 72.7% MACE over next 6 weeks - Early Invasive Strategies Course & Med Decision Making: Course & Med Decision Making Pertinent Labs and Imaging studies reviewed. (See chart for details) The patient's labs are unremarkable. Her urinalysis is positive for blood but negative for infection. CT scan shows 3 to 4 mm stone in the distal right ureter. See official read for more details. I have informed the patient about this. I will discharge her with a prescription for [place] 5/325 in case her pain gets out of control. She should be able to pass the stone. She is stable for discharge at this time. [] Dragon Disclaimer: Dragon Disclaimer: This electronic medical record was generated, in whole or in part, using a voice recognition dictation system. Departure Departure: Impression: Primary Impression: Ureterolithiasis Additional Impression: Nephrolithiasis Disposition: HOME / SELF CARE / HOMELESS Condition: STABLE Referrals: FROYLAN PANG APRN (PCP) Patient Instructions: Kidney Stones, [id number] Scripts Hydrocodone/Acetaminophen (Hydrocodone-Acetamin 5-325 mg) 1 Each Tablet 1 EACH PO Q4-6HRS PRN for PAIN, #10 TAB Prov: AP ARREGUIN DO 11/06/20 AP ARREGUIN DO Nov 06, 2020 13:01
[2020-11-06] MEDS ORDERED: KETOROLAC 30 MG/ML VIAL. IVP ONE (13:15)
[2020-11-06] MEDS ORDERED: IV NORMAL SALINE 1,000ML 1,000 ML IV ONE (13:15)
[2020-11-06 13:21] LABS: BASO % 0 % (0-3); EOS % 1 % (0-3); HEMATOCRIT 38.5 % (36.0-47.0); HEMOGLOBIN 12.8 g/dL (12.0-15.5); LYMPH % 10 % (24-48); MEAN CORPUSCULAR HEMOGLOBIN 32 pg (25-35); MEAN CORPUSCULAR HGB CONC 33 g/dL (31-37); MEAN CORPUSCULAR VOLUME 95 fL (79-100); MONO # 0.5 x10^3/uL (0.0-1.1); MONO % 5 % (0-9); NEUT # 8.2 x10^3uL (1.8-7.7); NEUT % 84 % (31-73); PLATELET COUNT 227 x10^3/uL (140-400); RED BLOOD COUNT 4.06 x10^6/uL (3.50-5.40); RED CELL DISTRIBUTION WIDTH 13.8 % (11.5-14.5); WHITE BLOOD COUNT 9.8 x10^3/uL (4.0-11.0)
[2020-11-06 13:28] LABS: CALCIUM 10.2 mg/dL (8.5-10.1); CREATININE 0.8 mg/dL (0.6-1.0); POTASSIUM 3.9 mmol/L (3.5-5.1)
[2020-11-06 13:34] LABS: ALBUMIN/GLOBULIN RATIO 1.3 (1.0-1.7); TOTAL BILIRUBIN 0.4 mg/dL (0.2-1.0)
[2020-11-06 13:43] LABS: BILIRUBIN,URINE NEG (NEG); CLARITY,URINE CLEAR; COLOR,URINE YELLOW; GLUCOSE,URINE NEG (NEG); NITRITE,URINE NEG (NEG); UROBILINOGEN,URINE 0.2 mg/dL (0.2 mg/dL)
[2020-11-06 13:47] LABS: BACTERIA,URINE 0 /HPF (0-FEW); SQUAMOUS EPITHELIAL CELL,UR OCC /LPF
--- NOTE | 2020-11-06 14:35 | RAD ---
INDICATION: Reason: RIGHT FLANK PAIN, HX STONES, CSECTION X 6 WEEKS AGO / Spl. Instructions: / Histo ry: . COMPARISON: June 20, 2019 TECHNIQUE: Axial CT images obtained through the abdomen and pelvis without contrast. One or more of the following individualized dose reduction techniques were utilized for this examinat ion: 1. Automated exposure control; 2. Adjustment of the mA and/or kV according to patient size; 3 . Use of iterative reconstruction technique. FINDINGS: Mild calcific atherosclerosis. No intrahepatic bile duct dilation. Liver prominent in size. Limited assessment of the pancreas without contrast. Spleen similar to prior. Nonobstructive left renal stone. Right-sided hydronephrosis and hydroureter. Multiple calcifications within the pelvis with the majori ty of these likely secondary to phlebolith formation but there is one near the expected location of t he right distal ureter measuring 3 to 4 mm. Urinary bladder has minimal urine within it at time of exam. There is some haziness to the fat within the pelvis. No dilated loops of bowel to suggest obstruction. Appendix is not well seen. Mild degenerative changes the spine including disc protrusion at L4-5 with grade 1 anterolisthesis. P ars defects at L4. IMPRESSION: * Right-sided hydronephrosis and hydroureter. There is also calcification near the expected location of the distal ureter which could be from distal ureter stone. * There are some nonspecific haziness to the fat within the pelvis. Could be related to the patient' s recent section. Electronically signed by: Rosendo Mccain MD (11/06/2020 2:33 PM) [id number]
[2020-11-06] MEDS ORDERED: HYDR-2759 PO (14:43)
== END 2020-11-06 14:50 | disposition home or self-care (01) ==
LOC: ER 12:43
DX: N20.1 Calculus of ureter (principal); N20.0 Calculus of kidney; E78.5 Hyperlipidemia, unspecified; Z88.2 Allergy status to sulfonamides
CPT/HCPCS: 36415; 74176; 80053; 81001; 85025; 96361; 96374; 99284; J1885; J7030